=== PATIENT | female | born 1940 | race Caucasian/White ===

== ENCOUNTER 2022-11-29 13:58 | Emergency (ER) | payer BC ==
[~2022-11-29] VITALS: Ht 160 cm; Wt 63.5 kg
--- NOTE | 2022-11-29 14:06 | NUR ---
Note alexa in EDM - 11/29/22 at 1435 by VJ CASEY [facility],C/O LEFT SIDED BODY PAIN SINCE THIS MORNING. RATES PAIN 03/03. WILL CONTINUE TO MONITOR THE PATIENT.
[2022-11-29 14:24] VITALS: BP 119/61
--- NOTE | 2022-11-29 14:24 | NUR ---
C/O OF COUGH MORE PREVAILANT AT NIGHT X 1 MONTH
--- NOTE | 2022-11-29 15:15 | NUR ---
PATIENT WOULD LIKE TO LEAVE WITHOUT BEING SEEN BY MD. PATIENT STATED THAT SHE IS FEELING BETTER NOW AND JUST WANT TO GO HOME, DAUGHTER IS ALSO AT BEDSIDE AGREED WITH THE PATIENT. MD MADE AWARE.
== END 2022-11-29 15:56 | disposition left against medical advice (07) ==
LOC: ER 14:09
DX: R05.9 Cough, unspecified (principal)